=== PATIENT | male | born 1940 | race Caucasian/White ===

== ENCOUNTER 2025-04-21 09:32 | Outpatient (CLI) | payer OTHER, SELFPAY ==
--- OUTSIDE RECORDS SUMMARY | 2024-12-03 11:50 | XMS_ITS | Continuity of Care Document ---
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 It does not include entries that were removed or entered in error. Problem Status Onset Date Problem Type Date of Resolution Comments Source Cervical spondylosis without myelopathy Active Condition Apr 03 003 Entered By: EDGAR OG Comment: See note for report of 04/03 cerv mri (neg) [facility] Colon Polyps Active Condition [facility] Elevated Prostate Specific Antigen (PSA) Active Condition Mar 03, 2003 Entered By: EDGAR OG Comment: psa=12.8 [facility] GERD Active Condition [facility] Hypertension Active Condition [facility] Low Back Pain Active Condition [facility] Osteoarthritis Active Condition [facility] Spondylosis, Cervical Active Condition [facility] Diagnosis: ICD-10-CM H90.3 Sensorineural hearing loss, bilateral Active Diagnosis [facility] Allergies, Adverse Reactions, Alerts Combined list of allergies from [facility] of [facility] and [facility] facilities. It does not include entries that were removed or entered in error. Substance Category Reaction Severity Reaction type Status Date Reported Comments Source TERAZOSIN Propensity to adverse reactions to drug (finding) Weakness present active 3 [facility] Encounters Combined list of: 1) Encounters from [facility] facilities going backup to the last 18 months, not all [facility] inpatient encounters are included; 2) Encounters from the Department of [facility] facilities going backup to 280 months. Location Location Details Encounter Type Encounter Number Reason For Visit Attending Provider ADM Date DC Date Status Disposition Source [facility] HEARING AID SUP/ACCESS /DEV [id number] Diagnos is: ICD-10- CM H90.3 Sensori neural hearing loss, flores michelle RUBEN JONES 03/07 [facility] HEARING AID REPAIR/MOD IFYING [id number] Diagnos is: ICD-10- CM H90.3 Sensori neural hearing loss, ANDREE Hare 03/11 [facility] HEARING AID FITTING/CH ECKING [id number] Diagnos is: ICD-10- CM H90.3 Sensori neural hearing loss, raulquincy RUBEN Qureshi 07/01 [facility] HEARING AID SUP/ACCESS /DEV [id number] Diagnos is: ICD-10- CM H90.3 Sensori neural hearing loss, Baldev Saenz N 08/04 [facility] N [facility] Outpatient Encounter [id number] 09/01 [facility] N [facility] Outpatient Encounter [id number] 12/03 [facility] N
--- OUTSIDE RECORDS SUMMARY | 2025-04-21 09:53 | XMS_ITS | Encounter Summary ---
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 Name Role Phone Unavailable Primary Care Provider Unavailabl e Encounter Details Date Type Department Care Team (Late st Contact Info) Description 05/16/2018 Lab Requisition [facility] Care DermPath Lab [address] [place] [id number] Bebo Batres MD [address] [place] [address] Social History Tobacco Use Types Packs/Day Years Used Date Smoking Tobacco: Never Assessed Sex and Gender Information Value Date Recorded Sex Assigned at Not on file Legal Sex Male 12:38 PM CDT Gender Identity Not on file Sexual Orientation Not on file documented as of this encounter Plan of Treatment Not on file documented as of this encounter Procedures Procedure Name Priority Date/Time Associated Diagnosis Comments DERMATOPATHOLOGY Routine 05/15/2018 12:0 0 AM CDT documented in this encounter Results * DERMATOPATHOLOGY (05/15/2018 12:00 AM CDT) Case Report Dermatopathology Report Case: [id number] Authorizing Provider: Bebo Batres MD Collected: 05/15/2018 12:00 AM Pathologist: Veronica Carlin MD Received: 05/16/2018 01:11 PM Specimens: A) - Skin, right side nose B) - Skin, left upper arm 8 5:41 PM CDT DERMATOPATHOLOGY LABORATORY Final Diagnosis Specimen A. 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 SKIN, left upper arm: ACTINIC KERATOSIS (L57.0) 8 5:41 PM CDT DERMATOPATHOLOGY LABORATORY at 1740 CDT Clinical History A-B; R/O BCC. 8 5:41 PM CDT DERMATOPATHOLOGY LABORATORY Gross Description Specimen A: Received is one formalin filled container labeled with the patient's name and designated right side nose. The specimen consists of a shave biopsy measuring [id number]. Jar 0. Specimen B: Received is one formalin filled container labeled with the patient's name and designated left upper arm. The specimen consists of a shave biopsy measuring [id number]. Jar 0. 8 5:41 PM CDT DERMATOPATHOLOGY LABORATORY Microscopic Description Specimen A. SKIN, right side nose: Sections show nests of cells with pale cytoplasm and thin strands of relatively normal keratinocytes intervening. There is overlying parakeratosis. There is minimal dermis present for evaluation. Specimen B. SKIN, left upper arm: There is focal parakeratosis. The lower half of the epidermis shows disorderly maturation of keratinocytes with nuclear pleomorphism. 8 5:41 PM T DERMATOPATHOLOGY LABORATORY Disclaimer An external and internal positive and negative controls are appropriate for the histochemical, immunohistochemical and immunofluorescence stain(s) in this case (if any), except where stated explicitly. The performance characteristics of the stain(s) cited in this report were developed and its performance characteristic determined by the Dermatopathology Laboratory at [facility]. These tests need not be, and therefore are not, approved by the [place] Food and Drug Administration. The tests are used for clinical purposes. Billing Codes Specimen Charges Stain Charges 59263 93378 1 1 8 5:41 PM CDT DERMATOPATHOLOGY LABORATORY Embedded Images 8 5:41 PM CDT DERMATOPATHOLOGY LABORATORY Pathology/Cytology TISSUE SPECIMEN FROM SKIN / Unknown 05/15/2018 05/16/2018 1:11 PM CDT Miscellaneous samples (specimen) TISSUE SPECIMEN FROM SKIN / Unknown 05/15/2018 05/16/2018 1:11 PM CDT us Bebo Batres MD LAB - PATHOLOGY/CYTOLOGY ORD ERABLES Final Result DERMATOPATHOLOGY LABORATORY [facility] - Department of Dermatology [address] Lab B [address] [phone] documented in this encounter Visit Diagnoses Not on filedocumented in this encounter
--- OUTSIDE RECORDS SUMMARY | 2025-04-21 09:53 | XMS_ITS | Clinical Summary ---
Author Organization [facility] [place] [address] [facility] [place]to Address [address] [place] [address] Care Team Providers Care Cinder Crusher Operator Name Role Phone Renee Llamas NP Primary Care Provider [phone] Allergies Active Allergy Reactions Criticality Noted Date Comments Terazosin Fatigue Low 04/03/2003 Medications iodine, kelp, (KELP) tablet 0 1 Active azafof-dulypix-r aw palm-min 17 (PROSTATE THERAPY) capsule 0 0 6 Active cranberry conc-ascorbic acid 4,200-20 mg capsule 0 0 6 Active magnesium V-uleyfe-aoriewy mide 42 mg (500 mg)- 250 mg tablet extended release Take 1 tablet by mouth daily Active vitamin B complex tablet extended release Take 1 tablet by mouth daily Active multivitamin capsuleIndicatio ns:stop 5 days before surgery Take 1 capsule by mouth daily Active ascorbic acid (VITAMIN C) 1,000 mg tablet Take 1 tablet (1,000 mg total) by mouth daily Active cyanocobalamin, vitamin B-12, (VITAMELTS ENERGY ORAL) Take 1 tablet by mouth daily. Active RIBOSE ORAL Take 1 tablet by mouth daily. Active milk thistle seed extract 175 mg capsule Take 1 capsule by mouth daily Active cholecalciferol (VITAMIN D-3) 2000 unit capsule Take 1 capsule (2,000 Units total) by mouth daily Active carboxymethylcel lulose (REFRESH TEARS) 0.5 % ophthalmic solution Administer 1 drop into both eyes 4 (four) times a day as needed Active apixaban (ELIQUIS) 5 mg tabletIndication s:Other (complete free text reason below),Atrial flutter Take 1 tablet (5 mg total) by mouth 2 (two) times a day 60 tablet 11 4 04/23/20 25 Active omega 0-oca-fbc-other om3-D3 2,200 mg-1,000 unit/5 mL liquid Take by mouth With chromium Active acidophilus-pect in, citrus 100 million cell-10 mg capsule Take by mouth Activ e benfotiamine 150 mg capsule Take by mouth Activ e taurine 500 mg capsule Take by mouth Active iyo-qbyopjzoc-ft etaminophen 2-5-325 mg tablet Take by mouth Active turmeric root extract 500 mg capsule Take by mouth Active vitamin E 1,000 unit capsule Take 400 Units by mouth daily Active levOCARNitine tartrate 250 mg capsule Take by mouth L Carnitine Active coenzyme Q10 100 mg capsule Take 1 capsule (100 mg total) by mouth daily Active omeprazole (PriLOSEC) 20 mg capsule Take 1 capsule (20 mg total) by mouth as needed Active trolamine salicylate 10 % cream Apply topically as needed for muscle/joint pain Active collagen, hydrolysate, bovine, (collagen, hydr, bovine,, bulk,) 100 % powder daily Active lactose-reduced food (ENSURE HIGH PROTEIN ORAL) Take by mouth Active gemfibroziL (LOPID) 600 mg tabletIndication s:Hypertriglycer idemia Take 1 tablet (600 mg total) by mouth daily 100 tablet 1 4 Active oxyCODONE-acetam inophen (PERCOCET) 5-325 mg per tabletIndication s:Pain Take 1-2 tablets by mouth every 8 (eight) hours as needed for pain 20 tablet 4 Active Additional Information Patient not taking.Reported on 11/13/2024 losartan (COZAAR) 50 mg tablet Take 1 tablet by mouth once daily 90 tablet 5 Active hydroCHLOROthiaz terrance 12.5 mg tabletIndication s:Primary hypertension Take 1 tablet by mouth once daily 90 tablet 5 Active tamsulosin (FLOMAX) 0.4 mg extended release capsuleIndicatio ns:Benign prostatic hyperplasia with nocturia Take 1 capsule by mouth once daily 100 capsule 5 Active finasteride (PROSCAR) 5 mg tabletIndication s:Benign prostatic hyperplasia with nocturia Take 1 tablet by mouth once daily 90 tablet 5 Active Active Problems Problem Noted Date Diagnosed Date Bradycardia 05/15/2024 Overview (11/13/2024): Possibly symptomatic bradycardia with heart rate down to the 40s when sleeping. It could be due to high vagal tone during sleeping or perhaps obstructive sleep apnea. Patient able to get his heart rate up to 115 beats per minute which is 93% of predicted maximum heart rate on the treadmill test 11 April 2024. No chest pain or EKG changes to suggest ischemia. Cardiac monitoring in April 2024 showed lowest heart rate of 37 beats per minute. Assessment & Plan (11/13/2024 12:17 PM CDT): Patient has done well over the past 6 months. He denies any exertional complaints whatsoever. He does not check his pulse rate regularly however. I advised him to use his blood pressure machine and check his blood pressure and pulse rate every now and then. He is to call me if the heart rate is consistently less than 40 beats per minute and he is symptomatic. Then he may need a permanent pacemaker. No change in medical regimen at this time. Assessment & Plan (05/15/2024 1:34 PM CDT): No evidence of severe bradycardia on cardiac monitoring. No change in medical regimen here. Valvular heart disease 05/15/2024 Overview (05/15/2024): Mild MR/faui-cg-rhvpskyr TR on echo 11 April 2024. LVEF of 60-65%. Assessment & Plan (11/13/2024 12:19 PM CDT): We discussed normal echo from 6 months ago. Since he has no complaints with exertion, no change in medical regimen here. Paroxysmal atrial fibrillation 05/15/2024 Overview (11/13/2024): Seen on alarm security or surveillance monitor on 21 April 2024 with less than 1% atrial fibrillation burden. Now on Eliquis 5 mg p.o. b.i.d.. Assessment & Plan (11/13/2024 12:18 PM CDT): Patient denies any palpitations, dizziness or syncope. Still appears to be in a controlled atrial fibrillation on my exam. He is not that interested in cardioversion so we should continue on Eliquis 5 mg p.o. b.i.d.. There are no significant bleeding issues. No change in medical regimen here. Assessment & Plan (05/27/2024 9:59 AM CDT): Patient continues to monitor for tachycardic spells, aware to reach out to operator coating furnace with concerns. Continues Eliquis 5 mg twice daily. Denies any bleeding/bruising. Reviewed bleeding precautions. Assessment & Plan (05/15/2024 1:33 PM CDT): Patient had an episode up to 200 beats per minute a few years back. He noticed it on his blood pressure machine and he could feel the racing. However, the episode from 25 April 2024 was asymptomatic around 5:00 p.m. in the afternoon I advised him to call me if he has anymore tachycardic spells--then I will put him on a beta-dafne. No significant bleeding issues with Eliquis. I gave him bleeding precautions. No change in medical regimen at this time. Benign neoplasm of colon 04/10/2024 Elevated prostate specific antigen (PSA) 024 Overview (04/10/2024): Mar 03, 2003 Entered By: ALENA OG Comment: psa=12.8 Low back pain 04/10/2024 Sensorineural hearing loss, bilateral 04/10/2024 Osteoarthritis 04/10/2024 Spondylosis of cervical spine without myelopathy 04/10/2024 Overview (04/10/2024): Apr 03, 2003 Entered By: ALENA OG Comment: See note for report of 04/03 cerv mri (neg) Tachy-david syndrome 04/10/2024 Physical exam, annual 02/16/2022 Assessment & Plan (11/22/2023 1:17 PM CDT): Preventative exam; reviewed screenings and prevention. Patient is up-to-date on vaccinations. Continues very active and healthy lifestyle. Assessment & Plan (05/24/2023 5:07 PM CDT): Preventive exam; reviewed recommended preventive screenings and vaccinations. Encourage annual flu vaccine. Wear sunscreen/protective clothing when outdoors. -Patient with very active lifestyle. -We discussed advanced health directive, patient given paperwork. Assessment & Plan (02/16/2022 1:38 PM CDT): Preventive exam; reviewed recommended preventive screenings and vaccinations. Encourage annual flu vaccine. Wear sunscreen/protective clothing when outdoors. BPH (benign prostatic hyperplasia) 04/29/2021 Assessment & Plan (05/27/2024 9:59 AM CDT): Doing well with finasteride and tamsulosin, no changes made today. Assessment & Plan (11/22/2023 1:17 PM CDT): Doing well with finasteride and tamsulosin. Will continue to monitor Assessment & Plan (02/16/2022 1:38 PM CDT): Stable on finasteride and tamsulosin. Denies any urinary symptoms or s/s of infection. Assessment & Plan (10/25/2021 2:47 PM MAINTENANCE PIPEFITTER): Doing well on finasteride and tamsulosin. No longer following with urology. Denies any urinary symptoms or s/s of infection. Assessment & Plan (04/29/2021 2:29 PM CDT): Follows with [facility]. Doing well on finasteride and tamsulosin. Avoiding liquids in the evening. History of COVID-19 10/07/2020 Hyperglycemia 10/07/2020 Assessment & Plan (05/27/2024 9:58 AM CDT): Stable; Lab Results Component Value Date HGBA1C 5.7 (H) 05/19/2024 HGBA1C 5.7 (H) 05/17/2023 HGBA1C 5.7 10/25/2021 Assessment & Plan (11/22/2023 11:10 AM CDT): Stable; will continue to monitor. Lab Results Component Value Date HGBA1C 5.7 (H) 05/17/2023 HGBA1C 5.7 10/25/2021 HGBA1C 6.0 (H) 10/29/2020 Assessment & Plan (10/25/2021 2:46 PM MAINTENANCE PIPEFITTER): A1c improved from 6% to 5.7%. Patient health conscious and continues exercising daily. Will continue to monitor. Assessment & Plan (04/29/2021 2:34 PM CDT): Lab Results Component Value Date HGBA1C 6.0 (H) 10/29/2020 Patient 12lb weight loss in the past year. Has been exercising 4 times weekly. Discussed continuing to work on diet and avoiding concentrated sweets. Assessment & Plan (10/07/2020 1:19 PM MAINTENANCE PIPEFITTER): 04/02/20 frwfivk=[id number]. a1c ordered; will contact w/results once rec'd. Mixed hyperlipidemia 03/18/2020 Assessment & Plan (11/22/2023 1:18 PM CDT): Reviewed labs, patient is compliant with medications. Following very healthy diet, eating lots of fresh fruits and vegetables. Avoiding b ad fats . Assessment & Plan (05/24/2023 5:10 PM CDT): Reviewed labs with patient. Assessment & Plan (02/16/2022 1:35 PM CDT): 11/2021 TC 204 TRG 75 HDL 56 LDL 133 Cholesterol well controlled. Patient working on healthy diet changes. Assessment & Plan (11/23/2021 11:35 AM CDT): TC 198 HDL 44 TRG 284 LDL 97 Discussed need to make dietary changes. No changes in current medication regimen. Will repeat lipid panel in 3-6 months, labs ordered today. Assessment & Plan (04/29/2021 2:48 PM CDT): Reviewed recent labs. Patient has excellent exercise routine. Discussed need to reduce red meats and fats. Will continue to monitor. Assessment & Plan (10/07/2020 2:08 PM MAINTENANCE PIPEFITTER): Taking gemfibrozil 600mg daily. We will check labs and make adjustments to medications as needed. Patient should focus on limiting bad fats in the diet and using exercise as a way to improve the lipid status. Secondary prevention. Reviewed medications. Lipid panel ordered; will call w/results when rec'd. Reviewed diet/exercise recommendations. Reviewed red flags. Assessment & Plan (03/18/2020 3:27 PM CDT): Lipid panel ordered; will call w/results when received. Reviewed diet/exercise recommendations. BMI 25.0-25.9,adult 02/20/2019 Assessment & Plan (05/27/2024 9:59 AM CDT): No changes in weight or appetite. Patient with very active and healthy lifestyle. Assessment & Plan (11/22/2023 1:22 PM CDT): Patient with 30 lb of intentional weight loss over the past year or so. He is exercising at least 5 days per week at local gym. Congratulated on healthy lifestyle. Assessment & Plan (05/24/2023 5:10 PM CDT): Discussed healthy diet and importance of regular physical activity. Assessment & Plan (02/16/2022 1:29 PM CDT): Discussed healthy diet and importance of regular physical activity. Assessment & Plan (10/25/2021 2:44 PM MAINTENANCE PIPEFITTER): Discussed healthy diet and importance of regular physical activity. Assessment & Plan (04/29/2021 2:24 PM CDT): Discussed healthy diet and importance of regular physical activity. Assessment & Plan (10/07/2020 2:02 PM MAINTENANCE PIPEFITTER): Discussed healthy diet and importance of regular physical activity. BMI is acceptable for this patient. Back at [employer] exercising. Assessment & Plan (03/18/2020 3:23 PM CDT): Discussed healthy diet and importance of regular physical activity. BMI is acceptable for this patient. Recently started walking at [employer] (1 mi/day) Has gone back to [employer] several times/day. Assessment & Plan (02/23/2019 9:24 PM CDT): Works out several times/wk at [employer]. Appears young than stated age. Encouraged to continue exercise regimen. Reviewed recommendations for daily intake & activity 20-30 minutes/day. Gastroesophageal reflux disease 02/20/2019 Assessment & Plan (11/22/2023 1:19 PM CDT): Patient is taking omeprazole as needed. Avoids aggravating foods. Assessment & Plan (05/24/2023 5:10 PM CDT): Improved with diet changes, using omeprazole as needed. Discussed use of prn famotidine. Assessment & Plan (02/16/2022 1:28 PM CDT): Taking omeprazole a few days per week. GERD symptoms largely improved with maintaining healthy weight and avoiding aggravating foods. Assessment & Plan (04/29/2021 2:26 PM CDT): Stable, doing well on omeprazole 20mg daily. Reviewed diet choices to reduce symptoms. Assessment & Plan (10/07/2020 1:19 PM MAINTENANCE PIPEFITTER): Omeprazole 20mg daily. Reviewed provocative foods to avoid: caffeine, citrus, ETOH, carbonated drinks, fried/fatty/fast foods & rich/creamy sauces. Reviewed diet/exercise recommendations: 20-30min physicaly activity daily at minimum. Reviewed med Ses & scheduling. Weight loss will help improve GERD sxs. Keep HOB elevated 30 degrees & not eat 2-3 hrs before bedtime. Assessment & Plan (02/23/2019 9:24 PM CDT): Reviewed provocative foods to avoid: caffeine, citrus, ETOH, carbonated drinks, fried/fatty/fast foods & rich/creamy sauces. Reviewed diet/exercise recommendations: 20-30min physicaly activity daily at minimum. Reviewed med Ses & scheduling. Weight loss will help improve GERD sxs. Keep HOB elevated 30 degrees & not eat 2-3 hrs before bedtime. Omeprazole refilled. Ventral hernia without obstruction or gangrene 0 02/26/2018 Overview (02/26/2018): Added automatically from request for surgery [id number] Benign neoplasm of prostate 01/17/2014 Overview (12/08/2016): BENIGN NEOPLASM PROSTATE Primary hypertension 01/17/2014 Overview (04/10/2024): HYPERTENSION NOS Assessment & Plan (11/22/2023 1:18 PM CDT): Blood pressure is well controlled, no change to current medications. Continue hydrochlorothiazide 12.5 mg and losartan 100 mg daily. Assessment & Plan (05/24/2023 5:08 PM CDT): Preventive exam; reviewed recommended preventive screenings and vaccinations. Encourage annual flu vaccine. Wear sunscreen/protective clothing when outdoors. Assessment & Plan (02/16/2022 1:26 PM CDT): BP well controlled. Patient recently purchased new home BP machine. BP averages 120's/80's. Exercises at least 3 days per week. Assessment & Plan (10/25/2021 2:44 PM MAINTENANCE PIPEFITTER): BP well controlled. No changes in current regimen. Assessment & Plan (04/29/2021 2:27 PM CDT): BP well controlled today. Patient checking BP at home with BP averaging 110/80's. Assessment & Plan (10/07/2020 1:20 PM MAINTENANCE PIPEFITTER): The blood pressure is under good control. Ideally it should be under 130/80. Continue medications without adjustment. Continue efforts to eat well (4-5 fruits and veggies) daily and exercise for about 30 min nearly every day. Watch salt intake, keeping to less than 2000mg per day. Limit alcohol. Include strategies to cope with stress. Labs ordered today; will contact w/results once received. Assessment & Plan (03/18/2020 3:27 PM CDT): Checks BP at home regularly. Never elevated. The blood pressure is under good control. Ideally it should be under 130/80. Continue medications without adjustment. Continue efforts to eat well (4-5 fruits and veggies) daily and exercise for about 30 min nearly every day. Watch salt intake, keeping to less than 2000mg per day. Limit alcohol. Include strategies to cope with stress. Labs ordered today; will contact w/results once received. Assessment & Plan (02/23/2019 9:23 PM CDT): Hypertension is improving with treatment. Continue current treatment regimen. Dietary sodium restriction. Regular aerobic exercise. Continue current medications. Blood pressure will be reassessed at the next regular appointment. The blood pressure is under good control. Ideally it should be under 130/80. Continue medications without adjustment. Continue efforts to eat well (4-5 fruits and veggies) daily and exercise for about 30 min nearly every day. Watch salt intake, keeping to less than 2000mg per day. Resolved Problems Problem Noted Date Diagnosed Date Resolved Date Multifocal pneumonia 05/04/2020 021 COVID-19 05/04/2020 10/07/2020 Hyperlipidemia 01/17/2014 03/18/2020 Overview (12/08/2016): HYPERLIPIDEMIA NEC/NOS Assessment & Plan (02/23/2019 9:22 PM CDT): Lipid abnormalities are improving with treatment. Pharmacotherapy as ordered. Lipids will be reassessed in 6 months. Secondary prevention. Reviewed medications. Denies any statin Ses. Reviewed diet/exercise recommendations. Reviewed red flags. Patient should focus on limiting bad fats in the diet and using exercise as a way to improve the lipid status. Immunizations Immunization Administration Dates Next Due Influenza, Quadrivalent, Hig h Dose, Preservative Free, Intrr 05/24/2023,06/12/2022,05/27/2021,06/17 Influenza, Quadrivalent, Spl it, Preservative Free, Intramuscular 06/04/2019,06/14/2015 Influenza, Split 06/13/2011 Influenza, Trivalent, High D ose, Split, Preservative Free, Intramuscular 05/27/2024,05/03/2018,07/15/2017,06/15 Influenza, Trivalent, IM (MDV) 07/03/2019,2013,06/08/2009 Influenza, Trivalent, Recomb inant, Egg Free, Preservative Free, Antibiotic Free, IM (FLUBLOK) 07/04/2014 Influenza, Unspecified 06/03/2018 Pneumococcal Conjugate PCV 13 07/15/2017 Pneumococcal Polysaccharide PPV23 11/18/2018 Tdap 06/03/2018 Surgical History Surgery Date Site/Laterality Comments DENTAL SURGERY MOLE REMOVAL OTHER SURGICAL HISTORY Tonsillectomy and Adnoidectomy OTHER SURGICAL HISTORY Left Left Foot Surgery x 2 KNEE ARTHROSCOPY W/ LATERAL RELEASE Right OTHER SURGICAL HISTORY excision of skin cancer on scalp PROSTATE BIOPSY x 2 BIOPSY Abdominal, benign HERNIA REPAIR Hernia Repair x 3 abdominal / 1 Left Inguinal Hernia HERNIA REPAIR 03/21/2018 laparoscopic Ventral Hernia Repair with Mesh and Open Repair of Perforated Small Bowel CATARACT EXTRACTION, BILATERAL 08/03/2018 Bilateral 2 weeks apart Medical History Medical History Date Comments Hx Other Medical hypotension; Co mments: Responded to treatment for diarrhea and iv hydration.; Outcome: improved Diverticulitis [address] [facility] BPH (benign prostatic hyperplasia) Rheumatic fever 1955 Hypertension Hyperlipidemia Trigylcerides GERD (gastroesophageal reflux disease) Arthritis knees, back Cataract August 2018 A-fib (HCC) Cancer (HCC) skin cancer on h ead and nose Family History Medical History Relation Name Comments Cancer Brother 1 Skin cancer Brother 1 COPD Brother 2 COPD; Coronary artery disease Father Elly nary artery disease; Heart disease Father Cancer Maternal Grandfather Skin cancer Maternal Grandfather Diabetes Maternal Grandmother Cancer Mother Heart disease Mother Heart failure Mother Congestive hea rt failure; Skin cancer Mother Relation Name Status Comments Brother 1 Alive Brother 2 Father Maternal Grandfather Maternal Grandmother Mother Social History Tobacco Use Types Packs/Day Years Used Date Smoking Tobacco: Former Cigarettes Q uit: 1968 Smokeless Tobacco: Never Tobacco Cessation:Counseling Given: Not Answered Alcohol Use Standard Drinks/Week Comments No 0 (1 standard drink = 0.6 oz pur e alcohol) AUDIT-C Answer Date Recorded Q1: How often do you have a drink containing alcohol? Never 08/21/2024 Q2: How many drinks containi ng alcohol do you have on a typical day when you are drinking? Patient does not drink Q3: How often do you have si x or more drinks on one occasion? Never 08/21/2024 PHQ-2 Answer Date Recorded PHQ-2 Total Score (If total score is 3 or more points, staff should administer the PHQ-9) 0 05/27/2024 Personal Safety Answer Date Recorded Have you ever been in or are you currently in a harmful physical or emotional relationship or is someone making you feel afraid or unsafe? Denies 08/11/2024 Sex and Gender Information Value Date Recorded Sex Assigned at Not on file Legal Sex Male 1:11 PM MAINTENANCE PIPEFITTER Gender Identity Not on file Sexual Orientation Not on file Obstetrics History Last Filed Vital Signs Vital Sign Reading Time Taken Comments Blood Pressure 132/73 11/13/2024 12:06 PM CDT Pulse 58 11/13/2024 12:06 PM CDT Temperature 36.2 C (97.1 F) 08/21/2024 11:02 AM MAINTENANCE PIPEFITTER Respiratory Rate 18 11/13/2024 12:06 PM CDT Oxygen Saturation 96% 08/21/2024 11:02 AM MAINTENANCE PIPEFITTER Inhaled Oxygen Concentration - - Weight 92.3 kg (203 lb 6.4 oz) 11/13/2024 12:06 PM CDT Height 188 cm (6' 2) 11/13/2024 12:06 PM CDT Body Mass Index 26.12 11/13/2024 12:06 PM CDT Plan of Treatment Health Maintenance Due Date Last Done Comments Hepatitis B Screening 1958 Zoster Vaccine (1 of 2) 1988 Well Visit 65+ 11/21/2024 11/22/2023, 05/05, 02/16/2022, Additional history exists Influenza Vaccine (#1) 2025 , 05/24/2023, 06/12/2022, Additional history exists Depression Screening 05/27/2025 05/27/2024, 11/22/2023, 05/24/2023, Additional history exists Fall Risk Assessment 07/02/2025 07/02/2024, 05/27/2024, 04/11/2024, Additional history exists DTaP/Tdap/Td Vaccine (2 - Td or Tdap) 06/03/2028 06/03/2018 Pneumococcal vaccine 65+ Completed 11/18/2018, 07/04 Medical Devices Implanted Type Area Marine Plumber Device Identifier Shelf Expiration Date Model / Serial / Lot [employer] [id number] Ventralight St Sepra 6x4in Monofilament Absorbable Low Profile - [id number] Implanted:Qty: 1 on 03/21/2018 by Frank Zazueta MD at [facility] N/A: Abdomen [employer] 07/31/2019 [id number] / / [id number] [employer]/C R Bard Ventralight St Sepra 6x4in Monofilament Absorbable Low Profile Latex Free [id number] - [id number] Implanted:Qty: 1 on 08/11/2024 by Frank Zazueta MD at [facility] N/A: Abdomen [employer]/C R Bard 03/30/2026 [id number] / / [id number] Insurance [facility] MEDICARE [employer] [facility] AETNA MEDICARE [employer] CHO[employer] PPO Advance Directives For more information, please contact: [phone] * Full Code (Latest Code Status on File) Date Activated Date Inactivated Comments 04/11/2024 7:02 AM 04/11/2024 8:05 PM * Full Code Date Activated Date Inactivated Comments 04/11/2024 6:59 AM 04/11/2024 7:00 AM * Full Code Date Activated Date Inactivated Comments 04/10/2024 7:07 PM 04/11/2024 6:59 AM * Full Code Date Activated Date Inactivated Comments 01/23/2018 11:36 AM 01/24/2018 9:21 AM Care Teams Cinder Crusher Operator Relationship Specialty Start Date End Date Renee Llamas NP [address] [place] [address] [place] [address] PCP - General Nurse Practitioner 11/13/24
--- OUTSIDE RECORDS SUMMARY | 2025-04-21 09:53 | XMS_ITS | Clinical Summary ---
Author Organization [facility] Address [address] [place] [address] Care Team Providers Care Hide Trimmer Name Role Phone Unavailable Primary Care Provider Unavailabl e Source Comments [facility],non-owned Affiliates and Associated Physician Practices is amultiple site organization consisting of ambulatory clinics and hospital sitesin [place], [place], [place] and [place]. This disclosure is being madepursuant to the Care Everywhere program and may not contain all information available regarding this patient. Last updated 18.[facility] Social History Tobacco Use Types Packs/Day Years Used Date Smoking Tobacco: Never Assessed Sex and Gender Information Value Date Recorded Sex Assigned at Not on file Legal Sex Male 12:38 PM CDT Gender Identity Not on file Sexual Orientation Not on file Plan of Treatment Health Maintenance Due Date Last Done Comments DTAP/TDAP/TD VACCINES (1 - Tdap) 1957 PNEUMOCOCCAL VACCINE 50+ (1 of 1 - PCV) 1988 ZOSTER VACCINE (1 of 2) 1988 Respiratory Syncytial Virus (RSV) Vaccine Pt: or over 60 yrs (1 - 1-dose 75+ series) 2013 COVID-19 VACCINE ( - 2023-2 5 season) 2024 DEPRESSION SCREENING 09/03/2024 INFLUENZA VACCINE (#1) 2025 HEPATITIS B VACCINE Aged Out No longe r eligible based on patient's age to complete this topic HIB VACCINE Aged Out No longer eligi ble based on patient's age to complete this topic HPV VACCINE Aged Out No longer eligi ble based on patient's age to complete this topic MENINGOCOCCAL (Group B) VACC INE SHARED DECISION-MAKING Aged Out No longer eligibl e based on patient's age to complete this topic MENINGOCOCCAL GROUPS A/C/Y/W VACCINE Aged Out No longer eligible b ased on patient's age to complete this topic Insurance MEDICARE [employer]
--- OUTSIDE RECORDS SUMMARY | 2025-04-21 09:53 | XMS_ITS | Clinical Summary ---
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 Name Role Phone Cirilo Morales MD Primary Care Provider [phone] Allergies No known active allergies Medications losartan (COZAAR) 100 MG TabletIndications :Benign prostatic hyperplasia with lower urinary tract symptoms, unspecified morphology 01/21/2016 Active omeprazole (PRILOSEC) 20 MG CAPSULE DELAYED RELEASEIndication s:Benign prostatic hyperplasia with lower urinary tract symptoms, unspecified morphology 01/26/2016 Active gemfibrozil (LOPID) 600 MG TabletIndications :Benign prostatic hyperplasia with lower urinary tract symptoms, unspecified morphology 03/27/2016 Active hydroCHLOROthiazi de 12.5 MG TabletIndications :Benign prostatic hyperplasia with lower urinary tract symptoms, unspecified morphology 04/03/2016 Active CRANBERRY-VITAMIN C POIndications:Sunil ign prostatic hyperplasia with lower urinary tract symptoms, unspecified morphology Take by mouth. Active Cholecalciferol (VITAMIN D3) 1000 UNIT TabletIndications :Benign prostatic hyperplasia with lower urinary tract symptoms, unspecified morphology Take by mouth. Active B Complex-C (SUPER B COMPLEX PO)Indications:Be nign prostatic hyperplasia with lower urinary tract symptoms, unspecified morphology Take by mouth. Active vitamin E (TOCOPHEROL) 400 UNIT CapsuleIndication s:Benign prostatic hyperplasia with lower urinary tract symptoms, unspecified morphology Take 400 Units by mouth daily. Active Magnesium 250 MG TabletIndications :Benign prostatic hyperplasia with lower urinary tract symptoms, unspecified morphology Take by mouth. Active Aspirin 81 MG TabletIndications :Benign prostatic hyperplasia with lower urinary tract symptoms, unspecified morphology Take 81 mg by mouth daily. Active [place]-3 1000 MG Capsule Take by mouth. Active CRISTOFER RAMÍREZ PO Take by mouth. Active Resveratrol (RESERVAPAK PLUS PO) Take by mouth. Active ALPHA LIPOIC ACID PO Take by mouth. Active Iodine, Kelp, (KELP PO) Take by mouth. Active Misc Natural Products (PROSTATE SUPPORT PO) Take by mouth. Active Multiple Vitamins-Minerals (ALIVE MENS ENERGY PO) Take by mouth. Active Acetylcysteine (NAC) 600 MG Capsule Take by mouth. Active Milk Thistle 175 MG Capsule Take by mouth. Active tamsulosin (FLOMAX) 0.4 MG CapsuleIndication s:Benign prostatic hyperplasia with lower urinary tract symptoms Take 1 Cap by mouth every morning. 90 Cap 3 08/18/2020 Active finasteride (PROSCAR) 5 MG TabletIndications :Benign prostatic hyperplasia with lower urinary tract symptoms Take 1 Tab by mouth daily. 90 Tab 3 08/18/2020 Active Active Problems No known active problems Immunizations Immunization Administration Dates Next Due Influenza Vaccine greater than 3 yrs 07/03/2019 Family History Medical History Relation Name Comments Cancer Brother brother Heart Attack Father Alzheimer's Disease Maternal Uncle Cancer Mother skin Relation Name Status Comments Brother Father Maternal Uncle Mother Social History Tobacco Use Types Packs/Day Years Used Date Smoking Tobacco: Former Cigarettes 1 11 Smokeless Tobacco: Never Tobacco Cessation:Counseling Given: No Comments:Quit when he was 28 Alcohol Use Standard Drinks/Week Comments No 0 (1 standard drink = 0.6 oz pur e alcohol) Quit drinking at 30 Sexually Active Control Partners Comments Not Currently Sex and Gender Information Value Date Recorded Sex Assigned at Not on file Legal Sex Male 8:47 PM CDT Gender Identity Not on file Sexual Orientation Not on file Last Filed Vital Signs Vital Sign Reading Time Taken Comments Blood Pressure 126/76 08/14/2019 1:08 PM RADIATOR CORE TESTER Pulse 62 08/14/2019 1:08 PM RADIATOR CORE TESTER Temperature 36.2 C (97.1 F) 08/14/2019 1:08 PM RADIATOR CORE TESTER Respiratory Rate 16 08/14/2019 1:08 PM RADIATOR CORE TESTER Oxygen Saturation 95% 08/14/2019 1:08 PM RADIATOR CORE TESTER Inhaled Oxygen Concentration - - Weight 97 kg (213 lb 12.8 oz) 08/14/2019 1:08 PM RADIATOR CORE TESTER Height 185.4 cm (6' 1) 08/14/2019 1:08 PM RADIATOR CORE TESTER Body Mass Index 28.21 08/14/2019 1:08 PM RADIATOR CORE TESTER Plan of Treatment Health Maintenance Due Date Last Done Comments Hepatitis C Virus (HCV) Screening 1940 TdaP Immunization 1940 Zoster Immunization (1 of 2) 1988 Respiratory Syncytial Virus (RSV) Immunization (Adult) (1 - 1-dose 75+ series) 2013 Pneumococcal Immunization (50+ years) (2 of 2 - PCV20 or PCV21) 07/15/2018 07/15/2017 SARS-COV-2 Immunization (2 - season) 2024 11/06/2020 Influenza Immunization (#1) 05/04/202506/03, 07/03/2019, 06/04/2019, Additional history exists Pneumococcal Immunization Combined Discontinued 07/15/2017 Hepatitis B Immunization Aged Out No longer eligible based on patient's age to complete this topic Human Papillomavirus (HPV) Immunization Aged Out No longer eligible based on patient's age to complete this topic Meningococcal Immunization (ACWY) Aged Out No longer eligible based on patient's age to complete this topic Rotavirus Immunization Aged Out No lo nger eligible based on patient's age to complete this topic Insurance MEDICARE [facility] Care Teams 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
[2025-04-21 19:16] LABS: Alanine Aminotransferase 20 U/L (6-50); Albumin Level 4.2 g/dL (3.5-5.1); Alkaline Phosphatase 62 U/L (38-126); Anion Gap 5 mmol/L (4-12); Aspartate Amino Transferase 58 U/L (17-59); Bilirubin,Total 0.4 mg/dL (0.2-1.3); Blood Urea Nitrogen 19 mg/dL (9-20); Calcium 9.6 mg/dL (8.4-10.2); Carbon Dioxide 25 mmol/L (22-30); Chloride 104 mmol/L (98-107); Cholesterol 195 mg/dL (0-200); Estimated Glomerular Filt Rate > 60; Glucose 120 mg/dL (65-110); HDL Direct 59 mg/dL; Potassium 4.1 mmol/L (3.4-5.0); Sodium 134 mmol/L (137-145); Total Protein 7.5 g/dL (6.3-8.2); Triglycerides 81 mg/dL (<150)
== END 2025-04-21 09:33 | disposition home or self-care (01) ==
LOC: ANHBWCLAB 09:34
PROVIDERS: PCP Nurse Practitioner Adult Health; Visit Provider Nurse Practitioner Adult Health
DX: E78.5 Hyperlipidemia, unspecified (principal)
CPT/HCPCS: 36415; 80053; 80061